=== PATIENT | male | born 1935 | race Caucasian/White ===

== ENCOUNTER 2016-04-25 10:04 | Outpatient (CLI) | payer MEDICARE ==
[2016-04-25 10:59] LABS: eGFR (African) > 60; eGFR (Non-African) > 60
== END 2016-04-25 10:15 ==
LOC: LAB 10:04
PROVIDERS: ATTEND Internal Medicine Cardiovascular Disease
DX: R73.9 Hyperglycemia, unspecified (principal)
CPT/HCPCS: 36415; 80048; 83036

== ENCOUNTER 2016-12-19 09:19 | Outpatient (CLI) | payer MEDICARE | END 2016-12-19 09:20 | LOC: CARD 09:19 | PROVIDERS: ATTEND Nurse Practitioner | DX: E78.00 Pure hypercholesterolemia, unspecified (principal); I26.99 Other pulmonary embolism without acute cor pulmonale; I82.91 Chronic embolism and thrombosis of unspecified vein; I25.10 Atherosclerotic heart disease of native coronary artery without angina pectoris; I10 Essential (primary) hypertension | CPT/HCPCS: G0463 ==

== ENCOUNTER 2017-07-08 09:45 | Outpatient (CLI) | payer MEDICARE ==
[2017-07-08 10:15] LABS: BASOPHILS % 0.5 (0.0-1.5); EOSINOPHILS % 2.7 % (0.0-6.8); MEAN CORPUSCULAR HEMOGLOBIN 31.2 pg (28.0-34.0); MEAN CORPUSCULAR VOLUME 93.4 fl (80.0-100.0); MONOCYTES % 3.9 % (0.0-11.0); NEUTROPHILS # 4.8 # k/uL (1.4-7.7)
[2017-07-08 10:52] LABS: eGFR (African) > 60; eGFR (Non-African) > 60
== END 2017-07-08 09:46 ==
LOC: LAB 09:45
PROVIDERS: ATTEND Nurse Practitioner
DX: E78.00 Pure hypercholesterolemia, unspecified (principal); I10 Essential (primary) hypertension; I25.10 Atherosclerotic heart disease of native coronary artery without angina pectoris
CPT/HCPCS: 36415; 80053; 80061; 84443; 85025

== ENCOUNTER 2017-08-03 09:34 | Outpatient (CLI) | payer MEDICARE | END 2017-08-03 09:35 | LOC: LAB 09:34 | PROVIDERS: ATTEND Family Medicine | DX: R97.20 Elevated prostate specific antigen [PSA] (principal) | CPT/HCPCS: 36415; 84153 ==

== ENCOUNTER 2018-01-06 14:29 | Outpatient (CLI) | payer MEDICARE ==
--- NOTE | 2018-01-07 10:47 | OP Clinic Progress Note ---
REASON FOR VISIT: Mr. Anthony is seen accompanied by his who is in a wheelchair. He has had thickening and inflammation on his tongue more than the buccal surfaces. He was seeing a dentist who felt it was thrush. He made the appointment before he saw the dentist. The dentist gave 100 mg of Diflucan for about 10 days. The patient has a renewal opportunity but has not gotten that. He feels that his symptoms have right at 100% resolved. Today, the oral cavity has no evidence of a localized lesion. The dorsal surface of the tongue still has a little bit of thickening but it is not grossly infected. There is no increased erythema. The patient clinically is symptomatically close to 100% resolved. He was given the option of taking the medication or not. I suggested that he might not take the Diflucan again unless his symptoms begin to resurface. He has a plate on the top part of his mouth that may have contributed to this to some degree. He is a mouth breather at night as noted by his . PLAN: Again, he is not given a follow up appointment, as clinically, his problem has resolved. Again, if there is a recurrence, he can take that renewable course of Diflucan. Of note, there is no gross cervical lymphadenopathy. cc: Dr. Lisseth MCKAY
== END 2018-01-06 14:30 ==
LOC: ENT 14:29
PROVIDERS: ATTEND Otolaryngology
DX: B37.9 Candidiasis, unspecified (principal)
CPT/HCPCS: G0463

== ENCOUNTER 2019-04-07 14:02 | Outpatient (CLI) | payer MEDICARE ==
--- NOTE | 2019-04-07 18:28 | Diagnostic Imaging Report ---
PATIENT MR#: [id number] PATIENT PATIENT NAME: NGOC ROSADO DATE OF : 1935 REFERRING PHYSICIAN: Lisseth Goodson EXAM DATE: 04/07/2019 ACCESSION NUMBER: [id number] EXAM DESCRIPTION: C SPINE 2 OR 3 VIEWS HISTORY: NECK PAIN FOR X6 MONTHS, NO KNOWN INJURY, NECK POPS, LT SIDE OF NECK PAIN, HARD TO TURN NEC K TO LT. COMPARISON: No relevant comparison is available at the time of interpretation. C-SPINE XRAY, 3 Views: Vertebral bodies: No compression deformities. The dens is intact and the lateral masses are symmetric . Disc spaces: Mild-moderate multilevel degenerative disc disease and facet arthrosis at C2-3, C3-4, C4 -5, C5-6 and C6-7. Alignment: Straightening of the normal cervical lordosis without listhesis. Additional findings: Atherosclerotic calcification of the aortic arch. Median sternotomy wires. IMPRESSION: 1. Straightening of the normal cervical lordosis. 2. Multilevel degenerative disc disease and facet arthrosis. Read by: Dr. Gutierrez Martinez Transcribed by: Gutierrez Martinez Transcribed Date: 04/07/2019 6:27:33 PM Electronically signed by: Dr. Gutierrez Martinez Date signed: 04/07/2019 6:27:33 PM
== END 2019-04-07 14:12 ==
LOC: RAD 14:02
PROVIDERS: ATTEND Family Medicine
DX: M54.2 Cervicalgia (principal)
CPT/HCPCS: 72040